=== PATIENT | female | born 1960 | race Caucasian/White ===

== ENCOUNTER → 2021-11-04 | Outpatient (CLI) | payer OTHER ==
[~2021-11-04] MED LIST: SODIUM CHLORIDE 0.9% 50 ML IVPB NR; SODIUM CHLORIDE 0.9% 500 ML 500 ML in EMPTY BAG 1 BAG IV PRN; SOTROVIMAB (EUA) 500 MG in SODIUM CHLORIDE 0.9% 100 ML IVPB NR
[2021-11-04 14:38] VITALS: RESP 16; TEMP 98.6
[2021-11-04 15:14] VITALS: BP 126/77; PULSE 71
== END ==
LOC: PROCWHC3 14:00
PROVIDERS: ATTEND Family Medicine
DX: U07.1 COVID-19 (principal); L40.50 Arthropathic psoriasis, unspecified; I10 Essential (primary) hypertension; D84.9 Immunodeficiency, unspecified; Z88.2 Allergy status to sulfonamides; Z88.1 Allergy status to other antibiotic agents
CPT/HCPCS: 96360; Q0247; M0247